=== PATIENT | male | born 1980 | race African-American/Black ===

== ENCOUNTER 2021-08-24 02:58 | Emergency (ER) | payer BC ==
[2021-08-24] MEDS ORDERED: Ketorolac Tromethamine 30 MG/ML VIAL ONE (03:45)
[2021-08-24] MEDS ORDERED: cloNIDine 0.1 MG TAB ONE (04:08)
[2021-08-24 04:47] LABS: SARS-CoV-2 NAA Rapid Test Not Detected (NotDetected)
== END 2021-08-24 05:16 | disposition home or self-care (01) ==
LOC: ERS 02:58
DX: B34.9 Viral infection, unspecified (principal); I10 Essential (primary) hypertension; Z20.822 Contact with and (suspected) exposure to COVID-19; F17.290 Nicotine dependence, other tobacco product, uncomplicated; Z79.899 Other long term (current) drug therapy
CPT/HCPCS: 0240U; 71045; 96372; J1885